=== PATIENT | male | born 1995 | race Caucasian/White ===

== ENCOUNTER 2019-01-24 14:46 | Emergency (ER) | payer OTHER ==
[2019-01-24] MEDS ORDERED: NS 0.9% 1000 ML** 1,000 ML IV ONE (15:54)
[2019-01-24] MEDS ORDERED: Ondansetron INJ* 2 MG/ML VIAL IV ONE (15:55)
--- NOTE | 2019-01-24 15:57 | ED ---
Substance Abuse/Use - HPI Summary HPI Summary: A 23 y/o male brought in by [facility] presents to [facility] with a chief complaint of EtOH intoxication today. He reports that he was drinking "too much gin" [employer] and thought that it was not a dangerous amount, but then he had N/V. In the ED he reports that his nausea is better and he denies any pain. He does not have vision changes. No trauma. Pt denies fever, chills. no recent illness. Pt lives in an apartment with friends. 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 He notes that he is not on daily medications but sometimes he takes Asmanex for asthma. He denies any SHx and denies drug use or smoking. Medications reviewed - History Of Current Complaint Chief Complaint: EDSubstanceAbuse Stated Complaint: ETOH PER EMS Time Seen by Provider: 01/24/19 15:09 Hx Obtained From: Patient, EMS Onset/Duration of Drug/ETOH Abuse: Hours Ingestion History: Type/Name Of Drug - gin, Amount Ingested - unknown, Approximate Time Of Ingestion - [employer] Overdose Characteristics: Oral Timing Of Abuse: Binge Use Severity Initially: Mild Severity Currently: Mild Character: Other - awake, responsive to questions Aggravating Factor(s): Nothing Alleviating Factor(s): Nothing Associated Signs And Symptoms: Nausea, Vomiting PMH/Surg Hx/FS Hx/Imm Hx Previously Healthy: Yes Endocrine/Hematology History: Denies: Hx Diabetes Cardiovascular History: Denies: Hx Hypertension Respiratory History: Reports: Hx Asthma - Surgical History Surgery Procedure, Year, and Place: none reported Infectious Disease History: No Infectious Disease History: Denies: Traveled Outside the [place] in Last 30 Days - Family History Known Family History: Positive: Non-Contributory Negative: Hypertension, Diabetes - Social History Occupation: Student Lives: Dormitory/Roommates Alcohol Use: Weekly Hx Substance Use: No Substance Use Type: Reports: None Hx Tobacco Use: No Review of Systems Negative: Fever Positive: Vomiting, Nausea Psychological: Other - positive: EtOH abuse All Other Systems Reviewed And Are Negative: Yes Physical Exam - Summary Physical Exam Summary: Vital Signs Reviewed: Yes A+Ox3, no distress, odor or ethanol and emesis Eyes: Conjunctiva mild injection ENT: Hearing grossly normal lips pasty Neck: Positive: Supple Respiratory: Positive: No respiratory distress, No accessory muscle use + CTA throughout no w/r Cardiovascular: RRR nl s1, s2 no m/r CBT <2 sec abd soft + BS nt/nd no guarding, no distension Musculoskeletal Exam: ORTIZ x 4 without difficulty Strength Intact, ROM Intact Neurological: Positive: Alert, + sensation throughout Psychological: Positive: Normal Response To Family Skin: Positive: no rash, no ecchymosis Triage Information Reviewed: Yes Vital Signs On Initial Exam: Initial Vitals Temp Pulse Resp BP Pulse Ox 98.7 F 85 18 116/59 98 01/24/19 15:10 01/24/19 15:10 01/24/19 15:10 01/24/19 15:10 01/24/19 15:10 Diagnostics - Vital Signs Vital Signs Temp Pulse Resp BP Pulse Ox 01/24/19 15:10 98.7 F 85 18 116/59 98 - Laboratory Lab Statement: Any lab studies that have been ordered have been reviewed, and results considered in the medical decision making process. Re-Evaluation - Re-Evaluation First Eval Re-Evaluation Time: 17:24 Change: Unchanged Comment: pt states feeling better. no current nausea/vomitimg. pt requesting discharge. will trial po. ambulate. anticipate discharge Course/Dx - Course Course Of Treatment: Patient presents today stating that he drank too much didn' t have repeated vomiting at home so they called 911. Patient states he did not lose consciousness. Patient states he did not black out. At the time of my evaluation patient states she's been little better. Patient with mild nausea but no current need to vomit. Patient isn't taken any by mouth. Patient states he doesn't typically drink and little overboard today. On exam vital signs are stable. Patient mentating and appropriate. Patient does have the smell of alcohol as well as emesis. Will give IV fluids and Zofran reassess. Patient is ambulatory will likely be discharged home with a safe ride. Patient comfortable in agreement with plan. We'll hold on laboratories at this time. - Diagnoses Provider Diagnoses: Alcohol intoxication, Emesis Discharge - Sign-Out/Discharge Documenting (check all that apply): Patient Departure Patient Received Moderate/Deep Sedation with Procedure: No - Discharge Plan Condition: Stable Disposition: HOME Patient Education Materials: Alcohol Intoxication (ED) Referrals: No Primary Care Phys,[facility] [Primary Care Provider] - [facility] [Provider Group] Additional Instructions: - stay well hydrated. Drink plenty of non-alcoholic, non-caffinated beverages - For the first 6 hours, eat and drink clears (water, milly italia, soup broth, jello, popsicles, Gatorade). If you tolerate this okay, add bland foods such as dry toast, scrambled eggs, crackers. Wait until you are feeling better for 24 hours before eating spicy food, acidic food, tomato based food, fried food. - Go to [facility] or return with questions or concerns - It is recomended you do not drink any additoinal alcohol in the next 24 hours. - Billing Disposition and Condition Condition: STABLE Disposition: Home - Attestation Statements Document Initiated by Royer: Yes Documenting Scribe: Johny Cooney Provider For Whom Royer is Documenting (Include Credential): Sonia Gibbs MD Scribe Attestation: IJohny, scribed for Sonia Gibbs MD on 01/24/19 at 1737. Scribe Documentation Reviewed: Yes Provider Attestation: The documentation as recorded by the Johny trujillo accurately reflects the service I personally performed and the decisions made by me, Sonia Gibbs MD Status of Scribe Document: Viewed
[2019-01-24 18:01] VITALS: BP 116/75
== END 2019-01-24 18:00 | disposition home or self-care (01) ==
LOC: ED 14:46
DX: F10.929 Alcohol use, unspecified with intoxication, unspecified (principal); R11.10 Vomiting, unspecified
CPT/HCPCS: 96361; 96374; 99282